=== PATIENT | male | born 1975 | race African-American/Black ===

== ENCOUNTER 2024-03-01 08:21 | Inpatient (IN) | payer BC ==
[2024-03-01 08:50] LABS: #Basophils 0.06 10x3/uL (0.0-0.2); #Eosinphils 0.21 10x3/uL (0.0-0.5); #Monocytes 0.91 10x3/uL (0.0-1.1); #Neutrophils 5.73 10x3/uL (1.5-8.4); %Basophils 0.7 % (0.0-2.0); %Eosinophils 2.6 % (0.0-6.0); %Lymphocytes 14.4 % (18.0-47.0); %Monocytes 11.2 % (0.0-10.0); %Neutrophils 70.5 % (40.0-75.0); Hematocrit 45.9 % (38.8-50.0); Hemoglobin 13.5 g/dL (13.5-17.5); Mean Corpuscular HGB CONC 29.4 g/dL (32.0-36.0); Mean Corpuscular Hemoglobin 25.7 pg (27.0-33.0); Mean Corpuscular Volume 87.3 fL (81.2-95.1); Mean Platelet Volume 9.3 fL (7.4-10.4); Platelet Count 299 10x3/uL (150-450); RBC Distribution Width 19.5 % (11.5-14.5); Red Blood Cell (RBC) Count 5.26 10x6/uL (4.32-5.72); White Blood Cell (WBC) Count 8.1 10x3/uL (3.5-10.5)
[2024-03-01 09:08] LABS: ALT (SGPT) 34 U/L (8-55); AST (SGOT) 36 U/L (5-34); Albumin 3.4 g/dL (3.5-5.0); Alkaline Phosphatase 98 U/L (40-110); Anion Gap 16 mmol/L (10-20); BUN (Urea Nitrogen) 20 mg/dL (8.9-20.6); Bilirubin, Total 0.6 mg/dL (0.2-1.2); Calc. Creatinine Clearance 0 mL/min (70-130); Calcium 9.2 mg/dL (7.8-10.44); Carbon Dioxide 29 mmol/L (22-29); Chloride 98 mmol/L (98-107); Estimated GFR 68; Globulin 4.8 g/dL (2.4-3.5); Glucose 105 mg/dL (70-105); Potassium 4.3 mmol/L (3.5-5.1); Protein, Total 8.2 g/dL (6.0-8.3); Sodium 139 mmol/L (136-145)
[2024-03-01] MEDS ORDERED: Furosemide 40 MG (4 mL) VIAL ONE (09:34)
[2024-03-01] MEDS ORDERED: Iopamidol 370 76% 100 ML VIAL ONE (14:43)
[2024-03-01 16:11] VITALS: BMI 51.8
[2024-03-01] MEDS: Acetaminophen 325 MG TAB PO SCH (18:33)
[2024-03-01] MEDS: Aspirin 325 mg Enteric Coated Tablet PO SCH (18:34)
[2024-03-01] MEDS: Furosemide 40 MG (4 mL) VIAL SLOW IVP SCH (18:35)
[2024-03-01 19:14] LABS: ALV-art Gradient 52.915 mmHg (0-20); Actual Bicarbonate (HCO3a) 31.1 mEq/L (22-28); Analyzer IN Cardio CS ER; Base Excess (BEa) 2.6 mEq/L (-2.0 to +3.0); CO2 Tension 66.5 mmHg (35.0-45.0); Carboxyhemoglobin (COHb) 5.2 gm% (0.0-3.0); Hematocrit-ABG 41 % (42.0-52.0); Hemoglobin (Hb) 13.8 g/dL (14.0-18.0); O2 Tension (PaO2), arterial 63.6 mmHg (80.0-100.0); Potassium - ABG Lab 3.89 mmol/L (3.70-5.30); Puncture Site RRA; pH, Arterial 7.288 (7.35-7.45)
[2024-03-01] MEDS: Metoprolol Tartrate 25 MG TAB PO SCH (21:06)
[2024-03-02 04:07] LABS: Anion Gap 12 mmol/L (10-20); BUN (Urea Nitrogen) 17 mg/dL (8.9-20.6); Calc. Creatinine Clearance 215 mL/min (70-130); Calcium 9.2 mg/dL (7.8-10.44); Carbon Dioxide 33 mmol/L (22-29); Chloride 97 mmol/L (98-107); Estimated GFR 93; Glucose 95 mg/dL (70-105); Potassium 4.3 mmol/L (3.5-5.1); Sodium 138 mmol/L (136-145)
[2024-03-02 04:52] LABS: #Basophils 0.06 10x3/uL (0.0-0.2); #Eosinphils 0.18 10x3/uL (0.0-0.5); #Monocytes 1.15 10x3/uL (0.0-1.1); %Basophils 0.7 % (0.0-2.0); %Eosinophils 2.1 % (0.0-6.0); %Lymphocytes 10.9 % (18.0-47.0); %Monocytes 13.4 % (0.0-10.0); %Neutrophils 72.1 % (40.0-75.0); Hematocrit 45.6 % (38.8-50.0); Hemoglobin 13.1 g/dL (13.5-17.5); Mean Corpuscular HGB CONC 28.7 g/dL (32.0-36.0); Mean Corpuscular Hemoglobin 25.6 pg (27.0-33.0); Mean Corpuscular Volume 89.2 fL (81.2-95.1); Mean Platelet Volume 9.3 fL (7.4-10.4); Platelet Count 292 10x3/uL (150-450); RBC Distribution Width 19.3 % (11.5-14.5); Red Blood Cell (RBC) Count 5.11 10x6/uL (4.32-5.72); White Blood Cell (WBC) Count 8.6 10x3/uL (3.5-10.5)
[2024-03-02 06:30] LABS: Anisocytosis MODERATE=16-30 cells (100X) (0-5/hpf); Microcytosis MODERATE=15-30 cells (100X) (0-5/hpf); Poikilocytosis SLIGHT = 6-15 cells (100X) (0-5/hpf)
[2024-03-02 06:31] LABS: Hypochromia SLIGHT = 6-15 cells (100X) (0-5/hpf); Ovalocytes SLIGHT = 2-5 cells (100X) (0-1/hpf); Polychromasia SLIGHT = 2-3 cells (100X) (0-2/hpf); Spherocytes SLIGHT = 1-5 cells (100X) (None Seen); Target Cells SLIGHT = 2-5 cells (100X) (0-1/hpf)
[2024-03-02 06:32] LABS: Basophilic Stippling SLIGHT = 1-2 cells (100X) (None Seen); Large Platelets SLIGHT (None Seen); Platelet Adequacy Comment Appears Adequate
[2024-03-02] MEDS: Furosemide 40 MG (4 mL) VIAL SLOW IVP SCH (06:33)
[2024-03-02 08:34] LABS: Actual Bicarbonate (HCO3v) 33.4 mEq/L (22-28); Analyzer IN Cardio CS ER; Base Excess 6.7 mEq/L (-2 - +2); Calcium, Ionized (venous) 0.97 mmol/L (1.16-1.32); Chloride (VBG) 96 mmol/L (98-106); Hematocrit-VBG 41 % (42.0-52.0); Hemoglobin (Hb) 14.1 g/dL (13.1-17.2); Potassium (VBG) 4.25 mmol/L (3.70-5.30); Puncture Site Other Site; RapidComm Collect By Phlembotomy; Sodium 137 mmol/L (133-146)
[2024-03-02] MEDS: Spironolactone 25 MG TAB PO SCH (08:55)
[2024-03-02] MEDS: Enoxaparin 40 MG (0.4 mL) SYRINGE SC SCH (08:55)
[2024-03-02] MEDS: Empagliflozin 10 MG TAB PO SCH (08:55)
[2024-03-02] MEDS: Amlodipine 5 MG TAB PO SCH (08:56)
[2024-03-02] MEDS: Aspirin 81 mg Enteric Coated Tablet PO SCH (08:56)
[2024-03-02] MEDS: Acetaminophen 325 MG TAB PO SCH (20:55)
[2024-03-03 03:55] LABS: #Basophils 0.05 10x3/uL (0.0-0.2); #Eosinphils 0.19 10x3/uL (0.0-0.5); #Monocytes 1.15 10x3/uL (0.0-1.1); #Neutrophils 6.52 10x3/uL (1.5-8.4); %Basophils 0.5 % (0.0-2.0); %Eosinophils 2.1 % (0.0-6.0); %Lymphocytes 13.3 % (18.0-47.0); %Monocytes 12.5 % (0.0-10.0); %Neutrophils 71.1 % (40.0-75.0); Hematocrit 43.3 % (38.8-50.0); Hemoglobin 12.6 g/dL (13.5-17.5); Mean Corpuscular HGB CONC 29.1 g/dL (32.0-36.0); Mean Corpuscular Hemoglobin 25.7 pg (27.0-33.0); Mean Corpuscular Volume 88.4 fL (81.2-95.1); Mean Platelet Volume 9.5 fL (7.4-10.4); Platelet Count 280 10x3/uL (150-450); RBC Distribution Width 18.9 % (11.5-14.5); White Blood Cell (WBC) Count 9.2 10x3/uL (3.5-10.5)
[2024-03-03 04:11] LABS: Anion Gap 14 mmol/L (10-20); BUN (Urea Nitrogen) 17 mg/dL (8.9-20.6); Calc. Creatinine Clearance 215 mL/min (70-130); Calcium 9.1 mg/dL (7.8-10.44); Carbon Dioxide 35 mmol/L (22-29); Cardiac Risk 3.3 (Less than 4.5); Chloride 94 mmol/L (98-107); Cholesterol 89 mg/dl (< 200 Desired); Estimated GFR 92; Glucose 86 mg/dL (70-105); HDL Cholesterol 27 mg/dL (>60 Neg Risk); LDL Cholesterol, Calculated 51 mg/dL; Potassium 4.4 mmol/L (3.5-5.1); Sodium 139 mmol/L (136-145); Triglycerides 55 mg/dL (Less than 150)
[2024-03-04 05:09] LABS: #Basophils 0.06 10x3/uL (0.0-0.2); #Eosinphils 0.22 10x3/uL (0.0-0.5); #Monocytes 1.08 10x3/uL (0.0-1.1); #Neutrophils 5.88 10x3/uL (1.5-8.4); %Basophils 0.7 % (0.0-2.0); %Eosinophils 2.7 % (0.0-6.0); %Lymphocytes 11.1 % (18.0-47.0); %Monocytes 13.2 % (0.0-10.0); %Neutrophils 71.7 % (40.0-75.0); Hematocrit 43.7 % (38.8-50.0); Hemoglobin 12.5 g/dL (13.5-17.5); Mean Corpuscular HGB CONC 28.6 g/dL (32.0-36.0); Mean Corpuscular Hemoglobin 25.3 pg (27.0-33.0); Mean Corpuscular Volume 88.5 fL (81.2-95.1); Mean Platelet Volume 9.4 fL (7.4-10.4); Platelet Count 289 10x3/uL (150-450); RBC Distribution Width 19.5 % (11.5-14.5); Red Blood Cell (RBC) Count 4.94 10x6/uL (4.32-5.72); White Blood Cell (WBC) Count 8.2 10x3/uL (3.5-10.5)
[2024-03-04 05:24] LABS: BUN (Urea Nitrogen) 17 mg/dL (8.9-20.6); Calc. Creatinine Clearance 216 mL/min (70-130); Estimated GFR 93; Glucose 86 mg/dL (70-105)
[2024-03-04 05:31] LABS: Anion Gap 18 mmol/L (10-20); Carbon Dioxide 33 mmol/L (22-29); Chloride 94 mmol/L (98-107); Potassium 4.4 mmol/L (3.5-5.1); Sodium 141 mmol/L (136-145)
[2024-03-04 13:07] LABS: pH, Arterial 7.446 (7.35-7.45)
[2024-03-04 13:08] LABS: Actual Bicarbonate (HCO3a) 36.3 mEq/L (22-28); Base Excess (BEa) 10.4 mEq/L (-2.0 to +3.0); CO2 Tension 53.6 mmHg (35.0-45.0); Hematocrit-ABG 40 % (42.0-52.0); O2 Tension (PaO2), arterial 62.6 mmHg (80.0-100.0)
[2024-03-04 13:09] LABS: Calcium, Ionized (arterial) 1.11 mmol/L (1.12-1.30); Carboxyhemoglobin (COHb) 1.9 gm% (0.0-3.0); Hemoglobin (Hb) 13.6 g/dL (14.0-18.0); Potassium - ABG Lab 3.94 mmol/L (3.70-5.30)
[2024-03-04 13:10] LABS: Analyzer IN Cardio CS ICU; Puncture Site LR
[2024-03-04 13:12] LABS: RapidComm Collect By EA
[2024-03-04 15:30] VITALS: BP 129/78; TEMP 98.6
== END 2024-03-04 15:15 | disposition home or self-care (01) | DRG 291 ==
LOC: CSHERS 08:21 → CSHTELE 13:51
PROVIDERS: ADMIT Hospitalist; ATTEND Internal Medicine
DX: I11.0 Hypertensive heart disease with heart failure (principal); I50.33 Acute on chronic diastolic (congestive) heart failure; J96.01 Acute respiratory failure with hypoxia; J96.02 Acute respiratory failure with hypercapnia; Z68.43 Body mass index [BMI] 50.0-59.9, adult; G47.33 Obstructive sleep apnea (adult) (pediatric); I27.20 Pulmonary hypertension, unspecified; E66.01 Morbid (severe) obesity due to excess calories; F17.210 Nicotine dependence, cigarettes, uncomplicated; F10.10 Alcohol abuse, uncomplicated; G47.30 Sleep apnea, unspecified; Z79.899 Other long term (current) drug therapy; Z98.890 Other specified postprocedural states
CPT/HCPCS: 36415; 36600; 71045; 71275; 80048; 80053; 80061; 82805; 83036; 83880; 84443; 84484; 85025; 93005; 93010; 93306; 94660; 94760; 94762; 96374; J1650; J1940; Q9967